=== PATIENT | male | born 1960 | race Caucasian/White ===

== ENCOUNTER 2021-07-24 10:11 | Outpatient (CLI) | payer BC ==
[~2021-07-24 10:11] MED LIST: ASPI-611 PO; AZEL6DRO6 EACHEYE; CELE-193 PO; CHOL2000 PO; CLAR500T3 PO; ETHA400T30 PO; FLUT12AE4 IH; FLUT16SP2 BOTHNARES; LANS30CA37 PO; LEVO5TAB13 PO; LISI1TAB51 PO; PYRA500T21 PO; [UNRECOGNIZED DRUG - CODE] PO
[2021-07-24 11:01] LABS: EOSINOPHILS # (AUTO) 0.2 X10'3 (0-0.9); LYMPHOCYTES # (AUTO) 0.9 X10'3 (1.1-4.8)
[2021-07-24 11:03] LABS: BASOPHILS % (AUTO) 0.6 % (0-1); EOSINOPHILS % (AUTO) 4.4 % (0-6); HEMATOCRIT 35.5 % (42.0-52.0); HEMOGLOBIN 11.5 g/dl (14.0-17.9); LYMPHOCYTES % (AUTO) 21.1 % (21-51); MEAN CORPUSCULAR HEMOGLOBIN 27.9 PG (27.0-31.0); MEAN CORPUSCULAR HGB CONC 32.3 g/dL (33.0-36.5); MEAN CORPUSCULAR VOLUME 86.3 FL (78-98); MEAN PLATELET VOLUME 8.6 FL (7.4-10.4); MONOCYTES # (AUTO) 0.9 X10'3 (0-0.9); MONOCYTES % (AUTO) 22.4 % (2-12); NEUTROPHILS # (AUTO) 2.2 X10'3 (1.8-7.7); NEUTROPHILS % (AUTO) 51.5 % (42-75); PLATELET COUNT 171 X10'3 (140-440); RED BLOOD COUNT 4.11 X10'6 (4.70-6.10); RED CELL DISTRIBUTION WIDTH 14.9 % (11.5-14.5); WHITE BLOOD COUNT 4.2 X10'3 (4.5-11.0)
[2021-07-24 11:10] LABS: APTT 27 SECONDS (22-32)
[2021-07-24 11:11] LABS: ALANINE AMINOTRANSFERASE 26 U/L (12-78); ALBUMIN 2.9 G/DL (3.4-5.0); ALBUMIN/GLOBULIN RATIO 0.9 (1.1-1.5); ALKALINE PHOSPHATASE 106 IU/L (46-116); ANION GAP 9 (8-16); ASPARTATE AMINO TRANSFERASE 22 U/L (10-37); BILIRUBIN,TOTAL 0.9 MG/DL (0.1-1.0); BLOOD UREA NITROGEN 20 MG/DL (7-18); BUN/CREATININE RATIO 21.1 (5.4-32.0); CALCIUM 8.4 MG/DL (8.5-10.1); CHLORIDE 108 MMOL/L (99-107); CREATININE 0.95 MG/DL (0.60-1.10); GLUCOSE 78 MG/DL (70-104); POTASSIUM 4.1 MMOL/L (3.5-5.1); SODIUM 140 MMOL/L (135-145); TOTAL CARBON DIOXIDE 22.6 MMOL/L (24-32); TOTAL PROTEIN 6.2 G/DL (6.4-8.2); eGFR 81 ML/MIN
[2021-07-24 11:55] LABS: ELLIPTOCYTES 1+; PLATELET ESTIMATE NORMAL; TOTAL CELLS COUNTED 100
== END 2021-07-24 23:59 | disposition home or self-care (01) ==
LOC: VAS 10:11
PROVIDERS: ATTEND Internal Medicine Cardiovascular Disease
DX: K42.9 Umbilical hernia without obstruction or gangrene (principal); K40.20 Bilateral inguinal hernia, without obstruction or gangrene, not specified as recurrent; M47.819 Spondylosis without myelopathy or radiculopathy, site unspecified; I25.10 Atherosclerotic heart disease of native coronary artery without angina pectoris; I08.0 Rheumatic disorders of both mitral and aortic valves; J98.11 Atelectasis; E04.1 Nontoxic single thyroid nodule; I65.23 Occlusion and stenosis of bilateral carotid arteries; I70.0 Atherosclerosis of aorta; R06.02 Shortness of breath; I65.29 Occlusion and stenosis of unspecified carotid artery; Z20.822 Contact with and (suspected) exposure to COVID-19
CPT/HCPCS: 36415; 71046; 71275; 74174; 80053; 85007; 85025; 85610; 85730; 87635; 93880; 94010; 94727; 94729; C9803; Q9967

== ENCOUNTER 2021-08-28 12:00 | Day surgery (SDC) | payer BC ==
[2021-08-27 13:01] LABS: BASOPHILS % (AUTO) 0.3 % (0-1); EOSINOPHILS # (AUTO) 0.2 X10'3 (0-0.9); EOSINOPHILS % (AUTO) 4.1 % (0-6); HEMOGLOBIN 12.4 g/dl (14.0-17.9); LYMPHOCYTES % (AUTO) 20.7 % (21-51); MEAN CORPUSCULAR HEMOGLOBIN 27.8 PG (27.0-31.0); MEAN CORPUSCULAR HGB CONC 32.7 g/dL (33.0-36.5); MEAN CORPUSCULAR VOLUME 84.9 FL (78-98); MEAN PLATELET VOLUME 8.6 FL (7.4-10.4); MONOCYTES % (AUTO) 20.9 % (2-12); NEUTROPHILS # (AUTO) 2.5 X10'3 (1.8-7.7); PLATELET COUNT 170 X10'3 (140-440); RED BLOOD COUNT 4.48 X10'6 (4.70-6.10); RED CELL DISTRIBUTION WIDTH 15.9 % (11.5-14.5); WHITE BLOOD COUNT 4.7 X10'3 (4.5-11.0)
[2021-08-27 13:07] LABS: ALBUMIN 3.2 G/DL (3.4-5.0); ANION GAP 8 (8-16); BLOOD UREA NITROGEN 23 MG/DL (7-18); BUN/CREATININE RATIO 26.1 (5.4-32.0); CALCIUM 8.6 MG/DL (8.5-10.1); CHLORIDE 109 MMOL/L (99-107); CREATININE 0.88 MG/DL (0.60-1.10); GLUCOSE 82 MG/DL (70-104); POTASSIUM 4.3 MMOL/L (3.5-5.1); SODIUM 141 MMOL/L (135-145); TOTAL CARBON DIOXIDE 24.5 MMOL/L (24-32); eGFR 89 ML/MIN
[2021-08-27 13:11] LABS: APTT 27 SECONDS (22-32)
[2021-08-27 14:19] LABS: TOTAL CELLS COUNTED 100
[2021-08-27 14:20] LABS: PLATELET ESTIMATE NORMAL
[2021-08-28] VITALS (9 sets, daily range): BP systolic 112–170; BP diastolic 51–88
[~2021-08-28] VITALS: Ht 175.3 cm; Wt 79.1 kg
[2021-08-28] MEDS ORDERED: normal saline 1,000 ML IV SCH (12:20)
[2021-08-28] MEDS ORDERED: diphenhydrAMINE 25mg capsule PO PRN (12:20)
[2021-08-28] MEDS ORDERED: LORazepam 0.5 MG tablet PO PRN (12:20)
[2021-08-28] MEDS ORDERED: FEBU80TA PO (13:07)
[2021-08-28] MEDS ORDERED: CETI10TA15 PO (13:09)
[2021-08-28] MEDS ORDERED: Tramadol PO (13:10)
[2021-08-28] MEDS ORDERED: DUPI200S (13:12)
[2021-08-28] MEDS ORDERED: LISI30TA4 PO (13:15)
[2021-08-28] MEDS ORDERED: nitroGLYCERIN-Tridil 50MG/D5W 250 ML IV ONE (13:28)
[2021-08-28] MEDS ORDERED: iohexol 350MG/ML 100ml bottle IV ONE (13:29)
[2021-08-28] MEDS ORDERED: fentaNYL/PF 50MCG/1 ML 2ML syringe ONE (13:29)
[2021-08-28] MEDS ORDERED: LIDOcaine 1% (10mg/ml)w/preservative inj. 20ml MDV ONE (13:29)
[2021-08-28] MEDS ORDERED: heparin 1,000unit/ml 10ml vial 10 ML ONE (13:29)
[2021-08-28] MEDS ORDERED: midazolam 1 mg/ML 2ml injection ONE ×2 (13:29→14:17)
[2021-08-28] MEDS ORDERED: iohexol 350 MG/ML 50ML vial IV ONE (13:29)
[2021-08-28] MEDS ORDERED: verapamil 2.5 mg/ml inj IV ONE (13:29)
[2021-08-28] MEDS ORDERED: diphenhydrAMINE 50 mg/ml inj ONE (14:11)
[2021-08-28] MEDS ORDERED: HYDROmorphone 1 mg/ml syringe ONE (14:36)
[2021-08-28 15:37] LABS: ISTAT HGB ART 10.9 g/dl (14.0-18.0); ISTAT Hct ART 32 %PCV (42-52); ISTAT O2 SATURATION ARTERIAL 98 % (95-98); ISTAT SOURCE ART
[2021-08-28] MEDS ORDERED: normal saline 1000ml 1,000 ML IV SCH (16:35)
[2021-08-28] MEDS ORDERED: ACETYLCYSTEINE 200 MG/1 ML 4 ML ORAL SOLUTION PO SCH (20:00)
[2021-08-31 06:25] LABS: ISTAT Hct MIX 35 %PCV (42-52); ISTAT O2 SATURATION MIX VENOUS 77 % (60-80); ISTAT SOURCE VEN
== END 2021-08-28 19:00 | disposition home or self-care (01) ==
LOC: SSTAY O 12:00
PROVIDERS: ATTEND Internal Medicine Cardiovascular Disease
DX: I35.0 Nonrheumatic aortic (valve) stenosis (principal); I25.10 Atherosclerotic heart disease of native coronary artery without angina pectoris; I10 Essential (primary) hypertension; G47.30 Sleep apnea, unspecified; K21.9 Gastro-esophageal reflux disease without esophagitis; M19.90 Unspecified osteoarthritis, unspecified site; E78.5 Hyperlipidemia, unspecified; Z79.899 Other long term (current) drug therapy; Z79.01 Long term (current) use of anticoagulants
CPT/HCPCS: 76937; 80048; 82803; 85014; 85025; 85610; 85730; 93005; 93460; 93567; 99152; 99153; C1751; C1769; C1894; J1170; J1200; J1644; J2250; J3010; J3490; Q0163; Q9967; 85007; A4620; A5120; A6258

== ENCOUNTER 2024-05-21 12:29 | Emergency (ER) | payer BC ==
[~2024-05-21] VITALS: Ht 175.3 cm; Wt 65.1 kg
[~2024-05-21 12:29] MED LIST changes: -ASPI-611 PO; +CETI10TA15 PO; +DUPI200S; +FEBU80TA PO; +FLUC100T PO; -FLUT12AE4 IH; -LEVO5TAB13 PO; -LISI1TAB51 PO; +LISI40TA13 PO; +METO75TA PO; -PYRA500T21 PO; +PYRA500T32 PO; +TRAM100T40 PO; +TRAM50TA2 PO
[2024-05-21 13:46] VITALS: BP 138/78; PULSE 88; RESP 16; TEMP 98.5; O2SAT 96
== END 2024-05-21 13:47 | disposition home or self-care (01) ==
LOC: ER 12:30
DX: B34.9 Viral infection, unspecified (principal); Z88.5 Allergy status to narcotic agent; Z88.1 Allergy status to other antibiotic agents; Z79.899 Other long term (current) drug therapy; Z95.1 Presence of aortocoronary bypass graft; Z90.49 Acquired absence of other specified parts of digestive tract; Z87.442 Personal history of urinary calculi; Z79.52 Long term (current) use of systemic steroids; Z98.890 Other specified postprocedural states; Z72.89 Other problems related to lifestyle
CPT/HCPCS: 87502; 87503; 99283